=== PATIENT | female | born 1965 | race Caucasian/White ===

== ENCOUNTER 2024-09-21 10:45 | Emergency (ER) | payer OTHER ==
[~2024-09-21] VITALS: Ht 170.2 cm; Wt 63.5 kg
[2024-09-21 11:29] LABS: PLATELET COUNT (AUTO) 252 K/uL (179-408); RED BLOOD CELL COUNT(AUTO) 3.89 MIL/uL (3.63-4.92); RED CELL DISTRIBUTION WIDTH 13.2 % (12.3-17.7); WHITE BLOOD COUNT (AUTO) 6.7 K/uL (3.8-11.8)
[2024-09-21 11:36] LABS: CREATININE 0.8 mg/dL (0.6-1.3); SODIUM SERUM 140 mmol/L (136-145); UREA NITROGEN, BLOOD 18 mg/dL (7-18)
[2024-09-21 11:42] LABS: ASPARTATE AMINOTRANSFERASE 30 U/L (15-37); TOTAL PROTEIN, SERUM 6.7 g/dL (6.4-8.2)
[2024-09-21] MEDS ORDERED: ESCI10TA PO (12:16)
[2024-09-21] MEDS ORDERED: ALBU0.63 IH (12:17)
[2024-09-21] MEDS ORDERED: PRED50TA PO (12:29)
[2024-09-21] MEDS ORDERED: HYDROMORPHONE 1 MG/1 ML DISP.SYRIN ONE (12:47)
[2024-09-21] MEDS ORDERED: ONDANSETRON 4 MG/2 ML VIAL ONE (12:47)
[2024-09-21] MEDS ORDERED: LIDOCAINE HCL 1% 20 ML VIAL ONE (12:47)
[2024-09-21] MEDS ORDERED: CLINDAMYCIN 600 MG PIGGYBACK**ER OMNI IV ONE (12:48)
[2024-09-21 13:41] VITALS: BP 110/63; TEMP 97.9; O2SAT 97
== END 2024-09-21 12:45 | disposition home or self-care (01) ==
LOC: ER 10:45
DX: J44.9 Chronic obstructive pulmonary disease, unspecified (principal); J98.01 Acute bronchospasm; R07.9 Chest pain, unspecified; R11.10 Vomiting, unspecified; Z59.00 Homelessness unspecified; Z79.52 Long term (current) use of systemic steroids; Z79.899 Other long term (current) drug therapy; Z91.040 Latex allergy status
CPT/HCPCS: 36415; 71045; 84484; 85025; 85730; A4606; A4663; J1171; J2405; J3490

== ENCOUNTER 2024-09-24 10:48 | Emergency (ER) | payer OTHER ==
[~2024-09-24] VITALS: Ht 170.2 cm; Wt 63.5 kg
[~2024-09-24 10:48] MED LIST: ALBU0.63 IH; ESCI10TA PO; PRED50TA PO
[2024-09-24 11:41] LABS: PLATELET COUNT (AUTO) 257 K/uL (179-408); RED BLOOD CELL COUNT(AUTO) 4.04 MIL/uL (3.63-4.92); RED CELL DISTRIBUTION WIDTH 13.8 % (12.3-17.7); WHITE BLOOD COUNT (AUTO) 13.7 K/uL (3.8-11.8)
[2024-09-24 11:53] LABS: CREATININE 0.9 mg/dL (0.6-1.3); SODIUM SERUM 143 mmol/L (136-145); UREA NITROGEN, BLOOD 16 mg/dL (7-18)
[2024-09-24 11:59] LABS: ASPARTATE AMINOTRANSFERASE 14 U/L (15-37); TOTAL PROTEIN, SERUM 6.7 g/dL (6.4-8.2)
[2024-09-24] MEDS ORDERED: POTASSIUM CHLORIDE 20 MEQ TAB.PRT.SR ONE (12:13)
[2024-09-24] MEDS: POTASSIUM CHLORIDE 20 MEQ TAB.PRT.SR PO ONE (12:16)
[2024-09-24] MEDS ORDERED: AZIT500T4 PO (12:26)
[2024-09-24] MEDS ORDERED: AZITHROMYCIN 250 MG TABLET ONE (12:33)
[2024-09-24] MEDS: AZITHROMYCIN 250 MG TABLET PO ONE (12:33)
[2024-09-24 12:52] VITALS: BP 120/78; TEMP 97.9; O2SAT 96
== END 2024-09-24 12:55 | disposition home or self-care (01) ==
LOC: ER 10:48
DX: J44.9 Chronic obstructive pulmonary disease, unspecified (principal); J98.01 Acute bronchospasm; R07.89 Other chest pain; R11.10 Vomiting, unspecified; Z59.00 Homelessness unspecified; Z79.52 Long term (current) use of systemic steroids; Z79.899 Other long term (current) drug therapy; Z91.040 Latex allergy status; Z87.09 Personal history of other diseases of the respiratory system; Z60.2 Problems related to living alone
CPT/HCPCS: 36415; 71045; 84484; 85025; 85730; A4606; A4663; Q0144